=== PATIENT | male | born 1970 | race Caucasian/White ===

== ENCOUNTER 2019-04-25 11:00 | Emergency (ER) | payer MEDICAID ==
[~2019-04-25] VITALS: Ht 185.4 cm; Wt 95.2 kg
[~2019-04-25 11:00] MED LIST: CHLO25CA10 PO; KEP500T PO; TRAM50TA2 PO
[2019-04-25] MEDS ORDERED: KEP500T PO (12:24)
== END 2019-04-25 12:35 | disposition home or self-care (01) ==
LOC: ER 11:01
DX: G40.909 Epilepsy, unspecified, not intractable, without status epilepticus (principal); F12.90 Cannabis use, unspecified, uncomplicated; Z76.0 Encounter for issue of repeat prescription; Z79.899 Other long term (current) drug therapy
CPT/HCPCS: 99283

== ENCOUNTER 2025-03-24 12:49 | Outpatient (CLI) | payer MEDICAID ==
--- NOTE | 2025-03-24 14:39 | RADIOLOGY REPORT ---
MRI of Brain and Orbits Clinical History: MALIGNANT NEOPLASM OF RIGHT CORNEA Technique: T1 sagittal, T2 axial, FLAIR axial and post gadolinium axial images were obtained. Thin section post contrast axial and coronal fat-sat T1 images of the orbits were also obtained. Diffusion-weighted tamara ges were also obtained. 20 cc of duarte scan contrast from a prefilled syringe was administered intravenously. Comparison: None Findings: There is a nonspecific 1.0 x 1.6 by 1.9 cm enhancing lesion along the superolateral surface of the ri ght orbital globe. The globes otherwise appear intact. The optic nerve/sheath complexes are symmetric in size and demonstrate no pathologic enhancement. The extraocular muscles appear symmetric in size and within normal limits.. There is no evidence of intraconal or extraconal mass. The optic chiasm a ppears within normal limits without extrinsic mass effect. The pituitary infundibulum is midline. The re is no evidence of a sellar or suprasellar lesion. There are postsurgical changes with large left frontal craniectomy with plate revision. There is unde rlying dural thickening enhancement, likely postsurgical. There is a moderate size resection cavity i n the left temporal lobe with surrounding gliosis. There is encephalomalacia and gliosis in the left frontal lobe which are likely postsurgical. There is no discrete mass or pathologic nodular masslike enhancement at the surgical site. There is no restriced diffusion. There is no hydrocephalus or extra-axial fluid collection. The visu alized intracranial vasculature demonstrates normal flow-voids. The craniocervical junction is within normal limits. The calvarium demonstrates normal marrow signal. The paranasal sinuses and mastoid ai r cells are clear. Impression: 1. Nonspecific 1.0 x 1.6 x 1.9 cm enhancing lesion along the superolateral surface of the right orbit al globe. 2. Postsurgical changes with moderate size resection cavity in the left temporal lobe. There is no ev idence of a discrete mass or pathologic enhancement of the surgical site to suggest tumor recurrence. HS:Y
[2025-03-24] MEDS ORDERED: GADOTERATE MEGLUMINE 7.5 MMOL/15 ML VIAL IV ONE (16:24)
[2025-03-25] MEDS ORDERED: GADOTERATE MEGLUMINE 7.5 MMOL/15 ML VIAL IV ONE (16:24)
== END 2025-03-24 23:59 | disposition home or self-care (01) ==
LOC: MRI 12:49
PROVIDERS: ATTEND Physician Assistant
DX: C69.1 Malignant neoplasm of cornea (principal); Z98.890 Other specified postprocedural states; G93.9 Disorder of brain, unspecified
CPT/HCPCS: 70543; A9575